=== PATIENT | male | born 1970 | race Caucasian/White ===

== ENCOUNTER 2017-11-13 17:00 | Emergency (ER) | payer OTHER ==
[~2017-11-13] VITALS: Ht 177.8 cm; Wt 119.2 kg
[2017-11-13 17:41] LABS: INFLUENZA A NONE DETECTED (NONE DETECT)
[2017-11-13 17:42] LABS: INFLUENZA B NONE DETECTED (NONE DETECT)
[2017-11-13 18:14] VITALS: BP 130/90
== END 2017-11-13 18:19 | disposition home or self-care (01) | DRG 153 ==
LOC: ED 17:00
PROVIDERS: Family Medicine
DX: J11.1 Influenza due to unidentified influenza virus with other respiratory manifestations (principal)

== ENCOUNTER 2018-07-27 20:25 | Emergency (ER) | payer OTHER ==
[~2018-07-27] VITALS: Ht 177.8 cm; Wt 114.2 kg
[2018-07-27] MEDS ORDERED: KEFLEX500 MG PO (21:47)
[2018-07-27 21:50] VITALS: BP 122/78
== END 2018-07-27 22:07 | disposition home or self-care (01) | DRG 605 ==
LOC: ED 20:25
PROC: 0HQGXZZ Repair Left Hand Skin, External Approach (ICD-10-PCS; principal; 2018-07-27)
DX: S61.215A Laceration without foreign body of left ring finger without damage to nail, initial encounter (principal); W23.0XXA Caught, crushed, jammed, or pinched between moving objects, initial encounter; Y93.89 Activity, other specified; Y92.008 Other place in unspecified non-institutional (private) residence as the place of occurrence of the external cause